=== PATIENT | female | born 1940 | race Caucasian/White ===

== ENCOUNTER → 2017-10-19 | Outpatient (CLI) | payer OTHER | LOC: NUC 05:39 | DX: M19.071 Primary osteoarthritis, right ankle and foot (principal); M54.5 Low back pain; M25.551 Pain in right hip; Z91.81 History of falling; Z90.49 Acquired absence of other specified parts of digestive tract ==

== ENCOUNTER 2017-11-08 05:25 | Day surgery (SDC) | payer OTHER ==
[~2017-11-08] VITALS: Ht 154.9 cm; Wt 56.7 kg
--- NOTE | ~2017-11-08 | EKG ---
[address] [address] ELECTROCARDIOGRAM REPORT Name: JOSE VELASQUEZ Room #: [facility]-[address] [place] [address].R.#: [id number] Admission: 11/08/17 Attend Phys: Barber Jurado, Discharge: Date of : 44 Report #: [id number] THIS REPORT FOR: //name// [facility] Test Date: 2017-11-08 Test Time: 06:39:46 Pat Name: JOSE VELASQUEZ Department: Room: [employer] Gender: F Medical Clerk: ALINA : 1940 Requested By: Barber Jurado Order Number: [id number] MD: Cody Banda Measurements Intervals [place] Rate: 70 P: 51 MO: 153 QRS: -4 QRSD: 86 T: 18 QT: 389 QTc: 420 Interpretive Statements Sinus rhythm Normal tracing No previous ECG available for comparison Electronically Signed On 11-08-2017 8:57:30 CDT by Cody Banda [email or web address] <ELECTRONICALLY SIGNED> By: Cody Banda MD, [facility] 11/08/17 [id number] Cody Banda MD, FACC /EPI
[~2017-11-08 05:25] MED LIST: ALBUTEROL2.5 MG/31 INH; AMLODIPINE BESY10 MG PO; ATIVAN1 MG PO; BENADRYL25 MG PO; BENZONATATE200 MG PO; CALCIUM 600 +1 EAC1 PO; ELEMENTAL CALC600 MG PO; FLONASE 0.05%50 MCG NASAL; GABAPENTIN 100100 MG PO; LACTAID3000 UNI1 PO; LEXAPRO20 MG PO; OMEPRAZOLE40 MG PO; ONDANSETRON HCL4 M2 PO; ONGLYZA5 MG PO; PERCOCET 10-321 EACH PO; SUMATRIPTAN SUC50 MG PO; SYMBICORT160 MCG/4. INH; VENTOLIN HFA 1818 GM INH; VITAMIN D350000 UNIT PO; ZANAFLEX2 MG PO; ZANTAC 150MG T150 MG PO; ZYRTEC10 M5 PO
[2017-11-08 07:05] LABS: CALCIUM 9.3 mg/dL (8.5-10.1); CREATININE 1.1 mg/dL (0.6-1.0); POTASSIUM 3.6 mmol/L (3.5-5.1)
[2017-11-08 07:11] LABS: ALBUMIN 3.5 g/dL (3.4-5.0); TOTAL BILIRUBIN 0.5 mg/dL (<0.1-1.0); TOTAL PROTEIN 5.9 g/dL (6.4-8.2)
[2017-11-08 07:35] VITALS: BP 109/64
== END 2017-11-08 10:47 | disposition home or self-care (01) ==
LOC: OR 05:25 → TBA 05:26 → OR 07:54
PROVIDERS: Preventive Medicine Occupational Medicine
DX: S32.010S Wedge compression fracture of first lumbar vertebra, sequela (principal); M47.896 Other spondylosis, lumbar region; M96.1 Postlaminectomy syndrome, not elsewhere classified; I10 Essential (primary) hypertension; E11.9 Type 2 diabetes mellitus without complications; J45.909 Unspecified asthma, uncomplicated; M19.90 Unspecified osteoarthritis, unspecified site; F32.9 Major depressive disorder, single episode, unspecified; Z79.899 Other long term (current) drug therapy; Z79.891 Long term (current) use of opiate analgesic; Z98.890 Other specified postprocedural states; Z88.0 Allergy status to penicillin; Z88.2 Allergy status to sulfonamides; X58.XXXS Exposure to other specified factors, sequela
CPT/HCPCS: 50010; 50101; 50386; 50417; 57122; 57123; 62110; 62850; 70005